=== PATIENT | male | born 1960 | race Caucasian/White ===

== ENCOUNTER 2016-12-07 14:46 | Emergency (ER) | payer OTHER ==
--- NOTE | ~2016-12-07 | CR126 ---
[facility] A Service of [facility] & [facility] RADIOLOGY TEXT RESULTS PATIENT: DIONNA FERMIN LOCATION: CFTX : 58 UNIT #: [id number] AGE: [address]: Abigail Sharp SEX: M ORDER DR: [id number] [facility] [address] [place], [place] [address] [id number] E MR#: [id number] Acc #: [id number] NAME: DIONNA FERMIN : 1960 SEX: M STUDY DATE/TIME: 12/07/2016 15:27 UNIT: [facility] ROOM: STUDY DESCRIPTION: CR Foot Complete Min 3 View Lt Attending Physician: Abigail Sharp P.A.-C. Ordering Physician: Abigail Sharp P.A.-C. Primary Care Physician: On License Of [facility], MEDICAL IMAGING REPORT This report is preliminary unless electronic signature is present EXAM Left foot, 3 views. HISTORY Lateral foot pain and swelling thrown off lawnmower today. TECHNIQUE Three views are submitted. FINDINGS The bony elements are intact and in normal alignment. No fractures or foreign bodies seen. CONCLUSION Negative Dictated by... Cr Garcia M.D. THIS IS AN ELECTRONICALLY VERIFIED REPORT Cr Garcia M.D. at 12/12/2016 7:13 AM STONE/wandy TD: 12/07/2016 16:22 JOB #: [id number] MEDICAL IMAGING REPORT Page 1 of 1 COPY
[~2016-12-07 14:46] MED LIST: CELEXA20 MG PO; COUMADIN PO; FOLIC ACID PO; K-DUR20 ME1 PO; MULTI VITAMIN1 EACH PO; THIAMINE HCL100 MG PO
== END 2016-12-07 16:15 | disposition home or self-care (01) ==
LOC: CED 14:46 → CFTX 14:46
DX: S90.32XA Contusion of left foot, initial encounter (principal); S80.811A Abrasion, right lower leg, initial encounter; Z23 Encounter for immunization; W22.8XXA Striking against or struck by other objects, initial encounter; Y92.69 Other specified industrial and construction area as the place of occurrence of the external cause; Y99.0 Civilian activity done for income or pay; F17.210 Nicotine dependence, cigarettes, uncomplicated; F32.9 Major depressive disorder, single episode, unspecified; Z86.718 Personal history of other venous thrombosis and embolism
CPT/HCPCS: 29405; 73630; 90471; 90715; 99283